=== PATIENT | female | born 1985 | race Caucasian/White ===

== ENCOUNTER 2016-11-03 21:49 | Emergency (ER) | payer BC, OTHER ==
[2016-11-03 21:57] VITALS: BP 109/62; PULSE 116; TEMP 101.8; BMI 20.3
--- NOTE | 2016-11-03 22:08 | PDOC ---
History of Present Illness - General History Source: Patient Exam Limitations: No Limitations <Suleiman Azevedo - Last Filed: 11/03/16 22:02> - General History Source: Patient Exam Limitations: No Limitations - History of Present Illness Initial Comments: 11/03/16 22:08 The patient is a 31 year old female with no significant past medical history of mild asthma who presents to the emergency department with cough since 10/10/2016. The patient states that she had a lingering cough and one week ago she had a coughing spell that resolved. The patient states that she had another coughing spell last night accompanied by some difficulty breathing, congested sinuses, and chest tightness. The patient called her primary care physician who referred her to the emergency department. <Venancio Reynoso - Last Filed: 11/03/16 22:11> - General Chief Complaint: Cold Symptoms Stated Complaint: FEVER/COUGH Time Seen by Provider: 11/03/16 22:02 Past History - Past Medical History Asthma: Yes - Immunization History Immunization Up to Date: Yes - Psycho/Social/Smoking Cessation Hx Anxiety: No Suicidal Ideation: No Smoking History: Unknown if ever smoked Have you smoked in the past 12 months: No Number of Cigarettes Smoked Daily: 0 Information on smoking cessation initiated: No Hx Alcohol Use: No Drug/Substance Use Hx: No Substance Use Type: None <Suleiman Azevedo - Last Filed: 11/03/16 22:02> <Venancio Reynoso - Last Filed: 11/03/16 22:11> - Past Medical History Allergies/Adverse Reactions: Allergies Allergy/AdvReac Type Severity Reaction Status Date / Time No Known Allergies Allergy Unverified 11/03/16 21:55 Home Medications: Ambulatory Orders NK [No Known Home Medication] 11/03/16 Review of Systems - Review of Systems Able to Perform ROS?: Yes Respiratory: Yes: Symptoms reported, See HPI, Cough Cardiac (ROS): Yes: Symptoms Reported, See HPI, Chest Tightness <Venancio Reynoso - Last Filed: 11/03/16 22:11> *Physical Exam - Vital Signs Last Vital Signs Temp Pulse Resp BP Pulse Ox 101.8 F H 116 H 15 109/62 99 11/03/16 21:52 11/03/16 21:52 11/03/16 21:52 11/03/16 21:52 11/03/16 21:52 - Physical Exam General Appearance: Yes: Nourished, Appropriately Dressed. No: Apparent Distress HEENT: positive: EOMI, AUDREY, Normal ENT Inspection Neck: positive: Supple. negative: Tender Respiratory/Chest: positive: Lungs Clear, Normal Breath Sounds. negative: Chest Tender, Respiratory Distress, Accessory Muscle Use Cardiovascular: positive: Regular Rhythm, Regular Rate, Tachycardia Gastrointestinal/Abdominal: positive: Normal Bowel Sounds, Soft. negative: Tender Musculoskeletal: positive: Normal Inspection Integumentary: positive: Normal Color. negative: Rash Neurologic: positive: Fully Oriented, Alert, Normal Mood/Affect, Normal Response , Motor Strength 5/5 <Suleiman Azevedo - Last Filed: 11/03/16 22:02> - Vital Signs Last Vital Signs Temp Pulse Resp BP Pulse Ox 101.8 F H 116 H 15 109/62 99 11/03/16 21:52 11/03/16 21:52 11/03/16 21:52 11/03/16 21:52 11/03/16 21:52 <Venancio Reynoso - Last Filed: 11/03/16 22:11> Progress Note - Progress Note Progress Note: VIRAL SYNDROME CXR D/C <Suleiman Azevedo - Last Filed: 11/03/16 22:02> *DC/Admit/Observation/Transfer <Suleiman Azevedo - Last Filed: 11/03/16 22:02> - Attestations Scribe Attestion: 11/03/16 22:09 Documentation prepared by Venancio Reynoso, acting as medical recruiter for Suleiman Azevedo MD. <Venancio Reynoso - Last Filed: 11/03/16 22:11> Diagnosis at time of Disposition: Viral syndrome - Discharge Dispostion Disposition: HOME Condition at time of disposition: Good - Patient Instructions Additional Instructions: PLENTY OF FLUIDS (WATER/GATORADE) MOTRIN/TYLENOL FOR FEVER OR PAIN REST RETURN IF FEVER, VOMITING, SHORTNESS OF BREATH - Post Discharge Activity Work/School Note: Back to Work
== END 2016-11-03 22:57 | disposition home or self-care (01) ==
LOC: FER 21:49
DX: B34.9 Viral infection, unspecified (principal)
CPT/HCPCS: 71020-TC; 84703; 99282-25